=== PATIENT | female | born 1975 ===

== ENCOUNTER 2018-07-02 10:23 | Outpatient (CLI) | payer OTHER ==
[~2018-07-02] VITALS: Ht 152.4 cm; Wt 100.7 kg
== END 2018-07-02 10:40 | disposition home or self-care (01) ==
LOC: OFIC 805 10:23
DX: H80.83 Other otosclerosis, bilateral (principal)

== ENCOUNTER 2018-11-26 10:58 | Outpatient (CLI) | payer OTHER ==
[~2018-11-26] VITALS: Ht 152.4 cm; Wt 97.5 kg
== END 2018-11-26 11:16 | disposition home or self-care (01) ==
LOC: OFIC 805 10:58
DX: H80.83 Other otosclerosis, bilateral (principal); H90.6 Mixed conductive and sensorineural hearing loss, bilateral

== ENCOUNTER 2022-08-05 06:27 | Day surgery (SDC) | payer OTHER ==
[~2022-08-05] VITALS: Ht 170.2 cm; Wt 102.1 kg
[~2022-08-05 06:27] MED LIST: ACID REDUCER20 M1 PO; ATIVAN1 M1 PO; LOSARTAN POTASS50 MG PO; PAXIL20 MG PO; SYNTHROID175 MCG PO
== END 2022-08-05 16:50 | disposition home or self-care (01) ==
LOC: CIR.AMB 06:27
PROVIDERS: ATTEND Orthopaedic Surgery Hand Surgery
DX: M65.331 Trigger finger, right middle finger (principal); Z20.822 Contact with and (suspected) exposure to COVID-19; E11.9 Type 2 diabetes mellitus without complications; E78.00 Pure hypercholesterolemia, unspecified; E78.3 Hyperchylomicronemia; I10 Essential (primary) hypertension